=== PATIENT | male | born 1950 | race Caucasian/White ===

== ENCOUNTER 2020-03-02 18:07 | Emergency (ER) | payer SELFPAY ==
[~2020-03-02] VITALS: Ht 177.8 cm; Wt 79.4 kg
[2020-03-02] MEDS ORDERED: BAYER CHEWABLE81 MG PO (18:45)
[2020-03-02] MEDS ORDERED: MULTI VITAMIN1 EACH PO (18:46)
== END 2020-03-02 22:20 | disposition home or self-care (01) ==
LOC: ED 18:07
DX: S01.01XA Laceration without foreign body of scalp, initial encounter (principal); S50.812A Abrasion of left forearm, initial encounter; S50.811A Abrasion of right forearm, initial encounter; F17.200 Nicotine dependence, unspecified, uncomplicated; Z79.82 Long term (current) use of aspirin; V80.010A Animal-rider injured by fall from or being thrown from horse in noncollision accident, initial encounter
CPT/HCPCS: 70450; 90471; 90715; 99283-25

== ENCOUNTER 2021-12-19 16:59 | Emergency (ER) | payer OTHER, MEDICARE ==
[~2021-12-19] VITALS: Ht 177.8 cm; Wt 79.4 kg
[~2021-12-19 16:59] MED LIST: BAYER CHEWABLE81 MG PO; MULTI VITAMIN1 EACH PO
[2021-12-19] MEDS ORDERED: HYDROCODON-ACE1 EA10 PO (19:37)
[2021-12-19] MEDS ORDERED: CEPHALEXIN500 M1 PO (19:37)
== END 2021-12-19 20:28 | disposition home or self-care (01) ==
LOC: ED 16:59
DX: S68.622A Partial traumatic transphalangeal amputation of right middle finger, initial encounter (principal); W54.0XXA Bitten by dog, initial encounter; Z23 Encounter for immunization
CPT/HCPCS: 73140; 90715; A9270

== ENCOUNTER 2022-08-15 07:38 | Day surgery (SDC) | payer MEDICARE ==
[~2022-08-15] VITALS: Ht 170.2 cm; Wt 83.9 kg
[~2022-08-15 07:38] MED LIST changes: +CEFTRIAXONE1 G2 IM; +CEPHALEXIN500 M1 PO; +GARLIC OIL1000 MG PO; +HYDROCODON-ACE1 EA10 PO; +LIPITOR10 MG PO; +PERCOCET 7.5-31 EACH PO; +SILDENAFIL20 MG PO
--- NOTE | 2022-08-15 10:01 | NUR ---
08/15/22 Jacey1 Bita Armstrong 0958- PT ARRIVES TO PACU REACTIVE TO VOICE. RESP EVEN AND UNLABORED. OXYGEN SAT HIGH 90'S ON 2L VIA NC. PT FALLS BACK TO SLEEP WHEN NOT BEING TALKED TO.
--- NOTE | 2022-08-16 06:56 | OR ---
[facility] [address], [place] [address] Signed DATE OF OPERATION: 08/15/2022 SURGEON: Joaquín Ibanez MD PREOPERATIVE DIAGNOSIS: Screening. POSTOPERATIVE DIAGNOSES: 1. Moderate sigmoid diverticulosis. 2. Minimal internal hemorrhoids and associated skin tags. 3. 5 mm polyps x2 in proximal to mid transverse colon. 4. 4 mm polyp at 10 cm in the rectum. PROCEDURE: Colonoscopy with hot biopsy. ESTIMATED BLOOD LOSS: None. INDICATIONS: Casper is a 71-year-old gentleman, asked to see me for his initial screening colonoscopy. He said he was scheduled twice in [place], [place]. 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 He could not make those appointments. He said he has no family history of colon cancer or polyps. He has no lower GI complaints. He came with his significant other to my office for more than 20 years. In the office, I gave him a pamphlet on colonoscopy. We had reviewed the nature of the test. There is risk including, but not limited to gas bloating, crampy abdominal pain, bleeding, perforation requiring surgery, and missed diagnosis. We also reviewed the written instructions for the bowel prep line by line. He held his aspirin 3 days prior to the procedure. We also reviewed the need for IV conscious sedation. He said his significant other would pick him home afterwards. He had expressed understanding and wished to proceed. PROCEDURE NOTE: Casper was taken into our endoscopy suite and placed in the left lateral decubitus position. He was given a total of 100 mcg of fentanyl and 5 mg of Versed. A digital rectal exam was performed and he does have a prominent indurated prostate gland. The left is a little concerning, it is fairly prominent compared to the right. He should probably review that with his primary care provider. Really not much in the way of any external hemorrhoids. He has good sphincter tone. There were no masses noted. The Electronically Signed By: JOAQUÍN IBANEZ MD 08/16/22 0656 PATIENT NAME: CASPER TAVAREZ OPERATIVE REPORT DATE OF : 54 REPORT #: [id number] PHYSICIAN: JOAQUÍN IBANEZ MD PCP: JC DUNLAP PA-C REPORT IS CONFIDENTIAL AND NOT TO BE RELEASED WITHOUT AUTHORIZATION [facility] [address], [place] [address] Signed adult colonoscope was then introduced and advanced under direct visualization of the camera. It took just a few minutes to get up through the sigmoid colon and around into the cecum itself. We saw a little mucus just before we got to the cecum. It wiped off easily. His prep was quite excellent. We could easily see the appendiceal orifice and the ileocecal valve. The scope was then slowly withdrawn. There were two polyps measuring 5 mm in diameter next to one another in the proximal to mid transverse colon. These were easily removed with the hot biopsy forceps and placed into the same jar. He also had a 4 mm polyp back in his rectum at about 10 cm. It was also easily removed with the hot biopsy forceps. He does have moderate sigmoid diverticulosis. They are moderate in size, moderate in number, and scattered about. Once the scope has been retroflexed in the rectum, we could see just very minimal internal hemorrhoid tissue with associated skin tags. After this, the gas was suctioned out and colonoscope removed. Casper tolerated the procedure quite well. RECOMMENDATIONS: I will see Casper back in my office in 7 to 14 days to review his results. He should also review his prostate exam and his PSA level with his primary care provider. Joaquín Ibanez MD [facility] [place] /[id number] cc: QUENTIN Rutledge MD Copies: JOAQUÍN IBANEZ MD ~ Electronically Signed By: JOAQUÍN IBANEZ MD 08/16/22 0656 PATIENT NAME: CASPER TAVAREZ OPERATIVE REPORT DATE OF : 54 REPORT #: [id number] PHYSICIAN: JOAQUÍN IBANEZ MD PCP: JC DUNLAP PA-C REPORT IS CONFIDENTIAL AND NOT TO BE RELEASED WITHOUT AUTHORIZATION
--- NOTE | 2022-08-16 14:50 | PATH ---
[facility] [address] [place], [place] [address] Signed SPECIMEN(S): A PROXIMAL TRANSVERSE COLON POLYP SPECIMEN(S): B RECTAL POLYP AT 10 CM SPECIMEN SOURCE: A. PROXIMAL TRANSVERSE COLON POLYP B. RECTAL POLYP AT 10 CM CLINICAL HISTORY: Pre: Initial screening colonoscopy. Post: Diverticulosis, internal hemorrhoids, polyps x 2. FINAL PATHOLOGIC DIAGNOSIS: A. Colon, proximal transverse, polypectomy: - Tubular adenoma. B. Rectum, 10 cm, polypectomy: - Tubular adenoma. BRP:[facility]:C2NR MICROSCOPIC EXAMINATION: Histologic sections of all submitted blocks are examined by light microscopy. These findings, together with the gross examination, support the pathologic diagnosis. GROSS DESCRIPTION: A. The specimen, labeled and designated "Ray, proximal transverse colon polyp," is received in formalin and consists of three blair soft tissue fragments, ranging from 0.2-0.3 cm. Entirely submitted in (A1). B. The specimen, labeled and designated "Ray, rectal polyp at 10 cm," is received in formalin and consists of one blair soft tissue fragment, 0.3 cm. Entirely submitted in (B1). VB (under the direct supervision of a pathologist) The Gross Description was prepared using a voice recognition system. The report was reviewed for accuracy; however, sound-alike word errors, addition and/or deletions may occur. If there is any question about this report, please contact Client Services. PERFORMING LABORATORY: The technical component was performed by [facility], [address] [place] [id number] (CLIA# [id number]). The professional interpretation was performed by [facility] PATIENT NAME: CASPER TAVAREZ PATHOLOGY DATE OF : 54 REPORT #: [id number] PHYSICIAN: [facility] PCP: JC DUNLAP PA-C REPORT IS CONFIDENTIAL AND NOT TO BE RELEASED WITHOUT AUTHORIZATION [facility] [address], [place] [address] Signed [place] [address] [id number] (CLIA#: [id number]). Diagnostician: Phil Gill MD Pathologist Electronically Signed 08/16/2022 Copies: ~ PATIENT NAME: CASPER TAVAREZ PATHOLOGY DATE OF : 54 REPORT #: [id number] PHYSICIAN: [facility] PCP: JC DUNLAP PA-C REPORT IS CONFIDENTIAL AND NOT TO BE RELEASED WITHOUT AUTHORIZATION
== END 2022-08-15 11:10 | disposition home or self-care (01) ==
LOC: DS 07:38 → OPS 07:38 → DS 09:00 → OPS 09:45
PROVIDERS: ATTEND Colon & Rectal Surgery
PROC: 0DBL8ZZ Excision of Transverse Colon, Via Natural or Artificial Opening Endoscopic (ICD-10-PCS; 2022-08-15)
PROC: 0DBP8ZZ Excision of Rectum, Via Natural or Artificial Opening Endoscopic (ICD-10-PCS; principal; 2022-08-15 09:00)
DX: Z12.11 Encounter for screening for malignant neoplasm of colon (principal); K57.30 Diverticulosis of large intestine without perforation or abscess without bleeding; K64.8 Other hemorrhoids; K64.4 Residual hemorrhoidal skin tags; K62.1 Rectal polyp; D12.8 Benign neoplasm of rectum; D12.3 Benign neoplasm of transverse colon
CPT/HCPCS: 99153; G0500; J2250; J3010; J7121

== ENCOUNTER 2022-10-09 18:14 | Emergency (ER) | payer MEDICARE ==
[~2022-10-09] VITALS: Ht 170.2 cm; Wt 81.7 kg
[2022-10-09] MEDS ORDERED: MUPIROCIN22 GM TOP (20:30)
[2022-10-09 20:51] VITALS: BP 136/78
== END 2022-10-09 20:52 | disposition home or self-care (01) ==
LOC: ED 18:14
DX: L98.9 Disorder of the skin and subcutaneous tissue, unspecified (principal); F17.200 Nicotine dependence, unspecified, uncomplicated; Z79.82 Long term (current) use of aspirin; Z79.899 Other long term (current) drug therapy; Z95.1 Presence of aortocoronary bypass graft
CPT/HCPCS: 70450

== ENCOUNTER 2023-04-29 21:21 | Emergency (ER) | payer OTHER, MEDICARE ==
[~2023-04-29] VITALS: Ht 170.2 cm; Wt 78.9 kg
[~2023-04-29 21:21] MED LIST changes: +CEPHALEXIN500 MG PO; +MUPIROCIN22 GM TOP; +OXYCODONE HCL5 MG PO
[2023-04-29 23:22] VITALS: BP 146/74
== END 2023-04-29 23:23 | disposition home or self-care (01) ==
LOC: ED 21:21
DX: S50.01XA Contusion of right elbow, initial encounter (principal); F17.200 Nicotine dependence, unspecified, uncomplicated; E78.00 Pure hypercholesterolemia, unspecified; V80.010A Animal-rider injured by fall from or being thrown from horse in noncollision accident, initial encounter; Z79.899 Other long term (current) drug therapy
CPT/HCPCS: 73080; A9270